=== PATIENT | male | born 1955 | race Caucasian/White ===

== ENCOUNTER 2019-10-31 20:22 | Emergency (ER) | payer MEDICARE ==
[~2019-10-31] VITALS: Ht 167.6 cm; Wt 72.6 kg
[2019-10-31] MEDS ORDERED: CELEBREX 200 M200 M1 PO (20:25)
[2019-10-31] MEDS ORDERED: STATIN PO (20:26)
[2019-10-31 20:54] LABS: HEMATOCRIT 36.6 % (42.0-52.0); HEMOGLOBIN 12.9 gm/dL (14.0-18.0); MCH 32.2 pg (26.0-34.0); MCHC 35.3 g/dL (28.0-37.0); MPV 6.3 fl. (7.2-11.1); NUCLEATED RBCS 0 /100WBC; PLATELET COUNT* 258 thou/uL (150-400); RBC 4.03 mil/uL (4.50-6.00); RDW-CV 13.3 % (10.5-14.5); WBC 7.4 thou/uL (4.0-11.0)
[2019-10-31 20:57] LABS: CALCIUM 8.7 mg/dL (8.5-10.1); POTASSIUM 3.2 mmol/L (3.5-5.1)
[2019-10-31 21:39] LABS: ABSOLUTE EOSINOPHILS 0.4 thou/uL (0.0-0.7); ABSOLUTE LYMPHOCYTES 4.6 thou/uL (0.8-5.3); ABSOLUTE MONOCYTES 0.3 thou/uL (0.0-1.2); ABSOLUTE NEUTROPHILS 2.1 thou/uL (1.6-8.1); PLATELET ESTIMATE ADEQUATE
[2019-10-31] MEDS ORDERED: MEDROLDOSEPACK PO (22:48)
[2019-10-31] MEDS ORDERED: ZOFRAN ODT4 MG PO (22:48)
[2019-10-31] MEDS ORDERED: MOTION RELIEF25 MG PO (22:48)
[2019-10-31 23:02] VITALS: BP 155/74
--- NOTE | 2019-11-01 11:53 | EKG ---
[place] [address] ELECTROCARDIOGRAM REPORT Name: AMILCAR RODRIGUEZ Room: [facility]#: [id number] Admission: 10/31/19 Attend Phys: Discharge: 10/31/19 Date of : 53 Date of Service: 10/31/192032 Report #: [id number] THIS REPORT FOR: //name// [facility] ED Test Date: 2019-10-31 Test Time: 20:33:58 Pat Name: AMILCAR RODRIGUEZ Department: Room: Gender: Telemarketer: DEBI : 1955 Requested By: Margret Corey Order Number: [id number] MD: Sumeet Lujan Measurements Intervals Marlin Rate: 58 P: -10 VT: 191 QRS: -4 QRSD: 123 T: 19 QT: 439 QTc: 432 Interpretive Statements Sinus rhythm Nonspecific intraventricular conduction delay No previous ECG available for comparison Electronically Signed On 11-01-2019 11:53:48 CDT by Sumeet Lujan [email or web address] <ELECTRONICALLY SIGNED> By: Sumeet Lujan MD, [facility] 11/01/19 1153 32 32 Sumeet Lujan MD, FAC /EPI
== END 2019-10-31 23:02 | disposition home or self-care (01) ==
LOC: M.ERS 20:22
PROVIDERS: Emergency Medicine
DX: R42 Dizziness and giddiness (principal); R11.0 Nausea; Z79.899 Other long term (current) drug therapy; Z88.2 Allergy status to sulfonamides